=== PATIENT | male | born 1995 | race Caucasian/White ===

== ENCOUNTER 2021-01-05 19:56 | Emergency (ER) | payer OTHER ==
[~2021-01-05] VITALS: Ht 185.4 cm; Wt 106.6 kg
[2021-01-05 22:48] VITALS: BP 155/98
[2021-01-05] MEDS ORDERED: IBUP-1955 PO (23:06)
--- NOTE | 2021-01-05 23:35 | NUR ---
Patient discharged to home in stable condition. Written and verbal after care instructions given. Patient verbalizes understanding of instruction. pt ambulatory with a steady gait
== END 2021-01-05 23:35 | disposition home or self-care (01) ==
LOC: ER 19:59
DX: G43.909 Migraine, unspecified, not intractable, without status migrainosus (principal); F51.3 Sleepwalking [somnambulism]; F19.10 Other psychoactive substance abuse, uncomplicated; I10 Essential (primary) hypertension; F41.9 Anxiety disorder, unspecified

== ENCOUNTER 2024-08-26 07:19 | Inpatient (IN) | payer OTHER ==
[~2024-08-26] VITALS: Ht 193 cm; Wt 141.5 kg
[~2024-08-26 07:19] MED LIST: IBUP-1955 PO
[2024-08-26] MEDS: ALBUTEROL FS 2.5 MG/3 ML VIAL.NEB NEB ONE (07:35)
[2024-08-26] MEDS: IPRATROPIUM NEB FS 0.5 MG/2.5 ML AMPUL.NEB NEB ONE (07:35)
[2024-08-26] MEDS ORDERED: IPRATROPIUM NEB FS 0.5 MG/2.5 ML AMPUL.NEB ONE (07:36)
[2024-08-26] MEDS ORDERED: ALBUTEROL FS 2.5 MG/3 ML VIAL.NEB ONE (07:36)
[2024-08-26] MEDS: CEFEPIME 1 GM in IV D5W 50 ML IV ONE (07:47)
[2024-08-26 07:48] LABS: BASOPHILS % (AUTO) 0.3 % (0.0-2.0); EOSINOPHILS # (AUTO) 0.2 K/uL (0.0-0.7); EOSINOPHILS % (AUTO) 2.3 % (0.0-6.0); HEMATOCRIT 37 % (39-51); HEMOGLOBIN 12.3 g/dL (13.5-17.5); LYMPHOCYTES # (AUTO) 0.7 K/uL (0.8-4.8); LYMPHOCYTES % (AUTO) 7.6 % (20.0-44.0); MEAN CORPUSCULAR HEMOGLOBIN 28 PG (26.0-33.0); MEAN CORPUSCULAR HGB CONC 33 g/dl (31.0-36.0); MEAN CORPUSCULAR VOLUME 86 fL (80-96); MONOCYTES # (AUTO) 0.6 K/uL (0.1-1.30); MONOCYTES % (AUTO) 6.8 % (2.0-12.0); NEUTROPHILS # (AUTO) 7.2 K/uL (1.8-8.9); PLATELET COUNT (AUTO) 244 K/uL (150-450); RED BLOOD CELL COUNT(AUTO) 4.37 MIL/uL (4.5-6.0); RED CELL DISTRIBUTION WIDTH 15.9 % (11.5-15.0); WHITE BLOOD COUNT (AUTO) 8.6 K/uL (4.3-11.0)
[2024-08-26 07:56] LABS: CALCIUM, SERUM 8.4 mg/dL (8.5-10.1); CARBON DIOXIDE 24 mmol/L (21-32); CHLORIDE 102 mmol/L (98-107); CREATININE 1.3 mg/dL (0.6-1.3); GLUCOSE 143 mg/dL (74-106); POTASSIUM 4.1 mmol/L (3.5-5.1); SODIUM SERUM 136 mmol/L (136-145); UREA NITROGEN, BLOOD 16 mg/dL (7-18)
[2024-08-26 08:01] LABS: INR 1.06 (0.91-1.10); PARTIAL THROMBOPLASTIN TIME 26.3 SEC (24.3-34.3); PROTHROMBIN TIME 11.2 SECS (9.2-11.1)
[2024-08-26 08:02] LABS: ALANINE AMINOTRANSFERASE 125 U/L (12-78); ALBUMIN 3.4 g/dL (3.4-5.0); ALCOHOL, BLOOD < 10 mg/dL (0-10); ALKALINE PHOSPHATASE 100 U/L (46-116); ASPARTATE AMINOTRANSFERASE 66 U/L (15-37); BILIRUBIN,DIRECT 0.4 mg/dL (0.0-0.2)
[2024-08-26 08:04] LABS: LACTIC ACID 1.7 mmol/L (0.4-2.0)
[2024-08-26 08:19] LABS: ABG BASE EXCESS -2.2 mmol/L (-2.0-3.0); ABG OXYGEN SATURATION 99.2 % (94.0-98.0); ABG PCO2 38.3 mmHg (35.0-48.0); ABG PH 7.387 (7.350-7.450); ABG PO2 280.1 mmHg (83.0-108.0); COHb 0.3 % (0.5-1.5); MetHb 0.4 % (0.0-1.5); O2Hb 98.5 % (94.0-97.0); SITE, ABG RIGHT RADIAL
[2024-08-26] MEDS: VANCOMYCIN 1 GM in IV D5W 250 ML IV ONE (08:25)
[2024-08-26 08:39] LABS: APPEARANCE,URINE CLEAR (CLEAR); BILIRUBIN,URINE NEGATIVE (NEGATIVE); BLOOD, URINE NEGATIVE Ery/uL (NEGATIVE); COLOR,URINE YELLOW (YELLOW); KETONES,URINE TRACE mg/dL (NEGATIVE); LEUKOCYTE ESTERASE ,URINE NEGATIVE (NEGATIVE); NITRITE, URINE NEGATIVE (NEGATIVE); PH,URINE 5.5 (5.0-8.0); PROTEIN,URINE NEGATIVE (NEGATIVE); UGLUCOSE NEGATIVE (NEGATIVE); UROBILINOGEN,URINE 0.2 EU/dL (0.2)
[2024-08-26 08:50] LABS: AMPHETAMINE, URINE NEGATIVE (NEGATIVE); BARBITURATE, URINE NEGATIVE (NEGATIVE); COCCAINE, URINE NEGATIVE (NEGATIVE); OPIATE, URINE NEGATIVE (NEGATIVE); PHENCYCLIDINE SCREEN,URINE NEGATIVE (NEGATIVE)
[2024-08-26 08:51] LABS: BENZODIAZEPINE, URINE POSITIVE (NEGATIVE)
[2024-08-26 08:52] LABS: CANNABINOID, URINE POSITIVE (NEGATIVE)
[2024-08-26 09:11] LABS: ADD URINE CULTURE NO; BACTERIA,URINE Rare /HPF (None Seen); RBC,URINE 0-2 /HPF (0-2); SQUAMOUS EPITHELIAL CELL,UR 0-2 /HPF (None Seen); WBC,URINE 0-2 /HPF (0-3)
[2024-08-26] MEDS ORDERED: MAG HYDROX/AL HYDROX/SIMETH 30 ML UDC PO PRN (10:00)
[2024-08-26] MEDS ORDERED: ONDANSETRON HCL/PF 4 MG/2 ML VIAL IVP PRN (10:00)
[2024-08-26] MEDS ORDERED: Z GUARD REMEDY 4 OZ OINT TP PRN (10:00)
[2024-08-26] MEDS ORDERED: MAGNESIUM HYDROXIDE 30 ML UDC PO PRN (10:00)
[2024-08-26] MEDS ORDERED: ALBUTEROL FS 2.5 MG/0.5 ML VIAL.NEB NEB PRN (10:30)
[2024-08-26 11:45] VITALS: O2SAT 97
[2024-08-26 11:50] VITALS: O2SAT 97
[2024-08-26] MEDS ORDERED: LITH300T PO (13:58)
[2024-08-26] MEDS ORDERED: SUMA100T16 PO (13:58)
[2024-08-26] MEDS ORDERED: LOSA50TA39 PO (13:58)
[2024-08-26] MEDS ORDERED: LAMO25TA10 PO (13:58)
[2024-08-26] MEDS ORDERED: RISP3TAB61 PO (13:58)
[2024-08-26] MEDS ORDERED: [UNRECOGNIZED DRUG - CODE] PO (13:58)
[2024-08-26] MEDS ORDERED: BENZ0.5T43 PO (13:58)
[2024-08-26] MEDS ORDERED: ESCI20TA PO (13:58)
[2024-08-26] MEDS ORDERED: PSYL0.4C2 PO (13:58)
[2024-08-26] MEDS ORDERED: PANT40TA49 PO (13:58)
[2024-08-26] MEDS ORDERED: ACET-73 PO (13:58)
[2024-08-26] MEDS ORDERED: MIRT-91 PO (13:58)
[2024-08-26] MEDS ORDERED: GABA600T12 PO (13:58)
[2024-08-26] MEDS ORDERED: QUET50TA PO (13:58)
[2024-08-26] MEDS ORDERED: [UNRECOGNIZED DRUG - CODE] PO (13:58)
[2024-08-26] MEDS ORDERED: MAGN100T PO (13:58)
[2024-08-26] MEDS ORDERED: BACL10TA PO (13:58)
[2024-08-26] MEDS ORDERED: OMEG1CAP55 PO (13:58)
[2024-08-26] MEDS ORDERED: BUPR1TAB45 SL (13:58)
[2024-08-26] MEDS ORDERED: PRAZ5CAP2 PO (13:58)
[2024-08-26] MEDS ORDERED: FUROSEMIDE 20 MG/2 ML VIAL ONE (15:01)
[2024-08-26] MEDS: LEVOFLOXACIN 750 MG /D5W 150ML 150 ML IV SCH (15:10)
[2024-08-26] MEDS: FUROSEMIDE 40 MG/4 ML VIAL IV ONE (15:15)
[2024-08-26] MEDS: ENOXAPARIN SODIUM 40 MG/0.4 ML DISP.SYRIN SQ SCH (15:21)
[2024-08-26 20:00] VITALS: BP 131/81; TEMP 98.9; O2SAT 94
[2024-08-26] MEDS: ACETAMINOPHEN 325 MG TABLET PO PRN (20:43)
[2024-08-27] VITALS: BP 100/64; TEMP 98.4; O2SAT 93
[2024-08-27 04:00] VITALS: BP 103/59; TEMP 98.4; O2SAT 94
[2024-08-27 07:06] LABS: BASOPHILS % (AUTO) 0.2 % (0.0-2.0); EOSINOPHILS # (AUTO) 0.3 K/uL (0.0-0.7); EOSINOPHILS % (AUTO) 2.6 % (0.0-6.0); HEMATOCRIT 37 % (39-51); HEMOGLOBIN 11.6 g/dL (13.5-17.5); LYMPHOCYTES # (AUTO) 1.2 K/uL (0.8-4.8); LYMPHOCYTES % (AUTO) 10.1 % (20.0-44.0); MEAN CORPUSCULAR HEMOGLOBIN 28 PG (26.0-33.0); MEAN CORPUSCULAR HGB CONC 31 g/dl (31.0-36.0); MEAN CORPUSCULAR VOLUME 89 fL (80-96); MONOCYTES # (AUTO) 1.3 K/uL (0.1-1.30); MONOCYTES % (AUTO) 10.7 % (2.0-12.0); NEUTROPHILS # (AUTO) 9.3 K/uL (1.8-8.9); NEUTROPHILS % (AUTO) 76.4 % (43.0-81.0); PLATELET COUNT (AUTO) 181 K/uL (150-450); RED BLOOD CELL COUNT(AUTO) 4.16 MIL/uL (4.5-6.0); RED CELL DISTRIBUTION WIDTH 16.7 % (11.5-15.0); WHITE BLOOD COUNT (AUTO) 12.1 K/uL (4.3-11.0)
[2024-08-27 07:32] LABS: CALCIUM, SERUM 8.7 mg/dL (8.5-10.1); CREATININE 0.8 mg/dL (0.6-1.3); MAGNESIUM 2.4 mg/dL (1.8-2.4); PHOSPHORUS 2.5 mg/dL (2.5-4.9); POTASSIUM 4.1 mmol/L (3.5-5.1)
[2024-08-27 08:00] VITALS: BP 120/66; TEMP 98.2; O2SAT 98
[2024-08-27 12:00] VITALS: BP 108/67; TEMP 97.9; O2SAT 99
[2024-08-27 16:00] VITALS: BP 120/68; TEMP 98.6; O2SAT 98
[2024-08-27] MEDS ORDERED: SUMATRIPTAN SUCCINATE 100 MG TABLET PO PRN (16:00)
[2024-08-27] MEDS ORDERED: CHROMIUM PICOLINATE 200 MCG PO SCH (17:00)
[2024-08-27] MEDS ORDERED: Medication Not On Formulary EA (Omega-3 Acid Ethyl Esters (Lovaza) 1 GM) PO SCH (17:00)
[2024-08-27] MEDS: BACLOFEN (10 MG) 10 MG TABLET PO SCH (18:23)
[2024-08-27] MEDS: LamoTRIgine 25 MG TABLET PO SCH (18:23)
[2024-08-27] MEDS: LOSARTAN POTASSIUM 50 MG TABLET PO SCH (18:24)
[2024-08-27 20:00] VITALS: BP 104/66; TEMP 98.8; O2SAT 95
[2024-08-27] MEDS: MIRTAZAPINE 15 MG TABLET PO SCH (21:03)
[2024-08-27] MEDS: QUETIAPINE FUMARATE 25 MG TABLET PO SCH (21:03)
[2024-08-27] MEDS: LITHIUM CARBONATE (300 MG CAP) 300 MG CAPSULE PO SCH (21:03)
[2024-08-27] MEDS: PRAZOSIN HCL 1 MG CAPSULE PO SCH (21:04)
[2024-08-28] VITALS: BP 101/61; TEMP 98.1; O2SAT 95
[2024-08-28 04:00] VITALS: BP 102/62; TEMP 98.1; O2SAT 95
[2024-08-28 07:19] LABS: BASOPHILS % (AUTO) 0.3 % (0.0-2.0); EOSINOPHILS # (AUTO) 0.4 K/uL (0.0-0.7); EOSINOPHILS % (AUTO) 3.8 % (0.0-6.0); HEMATOCRIT 33 % (39-51); HEMOGLOBIN 10.7 g/dL (13.5-17.5); LYMPHOCYTES # (AUTO) 1.4 K/uL (0.8-4.8); LYMPHOCYTES % (AUTO) 12.2 % (20.0-44.0); MEAN CORPUSCULAR HEMOGLOBIN 28 PG (26.0-33.0); MEAN CORPUSCULAR HGB CONC 33 g/dl (31.0-36.0); MEAN CORPUSCULAR VOLUME 86 fL (80-96); MONOCYTES # (AUTO) 1.3 K/uL (0.1-1.30); MONOCYTES % (AUTO) 12.1 % (2.0-12.0); NEUTROPHILS # (AUTO) 7.9 K/uL (1.8-8.9); NEUTROPHILS % (AUTO) 71.6 % (43.0-81.0); PLATELET COUNT (AUTO) 209 K/uL (150-450); RED BLOOD CELL COUNT(AUTO) 3.85 MIL/uL (4.5-6.0); WHITE BLOOD COUNT (AUTO) 11.1 K/uL (4.3-11.0)
[2024-08-28 07:43] LABS: CALCIUM, SERUM 8.8 mg/dL (8.5-10.1); CREATININE 0.8 mg/dL (0.6-1.3); POTASSIUM 3.4 mmol/L (3.5-5.1)
[2024-08-28 08:00] VITALS: BP 128/67; TEMP 98.1; O2SAT 96
[2024-08-28] MEDS: KEY,NONCONTROL,TO KEEP IN PYXI 1 EA MC ONE (08:49)
[2024-08-28] MEDS: risperiDONE 1 MG TABLET PO SCH (08:49)
[2024-08-28] MEDS: GABAPENTIN 400 MG CAPSULE PO SCH (08:50)
[2024-08-28] MEDS: ESCITALOPRAM OXALATE (10 MG) 10 MG TABLET PO SCH (08:50)
[2024-08-28] MEDS: PSYLLIUM SEED 1 PKT PACKET PO SCH (08:50)
[2024-08-28] MEDS: BENZTROPINE MESYLATE (1 MG) 1 MG TABLET PO SCH (08:51)
[2024-08-28] MEDS: PROPRANOLOL LA 60 MG CAP.SA.24H PO SCH (08:56)
[2024-08-28] MEDS: POTASSIUM CHLORIDE 20 MEQ TAB.PRT.SR PO SCH (10:31)
[2024-08-28 12:28] VITALS: BP 128/69; TEMP 97.1; O2SAT 94
[2024-08-28] MEDS ORDERED: LEVO500T90 PO (13:10)
[2024-08-28] MEDS ORDERED: KEY,NONCONTROL,TO KEEP IN PYXI 1 EA MC ONE (14:18)
== END 2024-08-28 14:24 | disposition home or self-care (01) | DRG 205 ==
LOC: ER 07:31 → ICU 08:09 → OBSER 11:19 → TELE1 19:29 → TELE-TD 19:51 → TELE1 08-27 09:41
PROVIDERS: ADMIT Internal Medicine; ATTEND Internal Medicine
PROC: 5A09357 Assistance with Respiratory Ventilation, Less than 24 Consecutive Hours, Continuous Positive Airway Pressure (ICD-10-PCS; principal; 2024-08-26)
DX: J68.0 Bronchitis and pneumonitis due to chemicals, gases, fumes and vapors (principal); J96.01 Acute respiratory failure with hypoxia; U07.0 Vaping-related disorder; J12.9 Viral pneumonia, unspecified; I10 Essential (primary) hypertension; E66.01 Morbid (severe) obesity due to excess calories; J98.4 Other disorders of lung; F10.10 Alcohol abuse, uncomplicated; F19.10 Other psychoactive substance abuse, uncomplicated; R79.89 Other specified abnormal findings of blood chemistry; Z20.822 Contact with and (suspected) exposure to COVID-19; R94.5 Abnormal results of liver function studies
CPT/HCPCS: 36415; 36600; 71045-TC; 80048-TC; 80076-TC; 80178-TC; 81001; 82803-TC; 83605-TC; 83735-TC; 83880; 84100-TC; 84484-TC; 85025-TC; 85730-TC; 87040-TC; 87081-TC; 87086-TC; 93307-TC; 94799-TC; A4223; G0378; G0480; J0692; J1650; J1938; J1956; J3370; J7050; J7060